=== PATIENT | female | born 1980 | race Caucasian/White ===

== ENCOUNTER 2017-07-17 07:38 | Inpatient (IN) | payer OTHER ==
[2017-07-17] VITALS (19 sets, daily range): BP systolic 112–158; BP diastolic 62–84; PULSE 56–87; RESP 16–28; Ht 160 cm; Wt 79.0 kg
[~2017-07-17] VITALS: Ht 160 cm; Wt 79.0 kg
[2017-07-17] MEDS ORDERED: HYDR200T5 PO (08:31)
[2017-07-17] MEDS ORDERED: PRED5 PO (08:31)
--- NOTE | 2017-07-17 08:37 | HP ---
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 denies any sexually transmitted infection sexually active with one partner Social history denies any smoking drugs or alcohol Family history none Review of systems all within normal except history of present illness HEENT within normal Lungs CTA bilateral CVS positive S1-S2 regular rhythm Abdomen mild lower abdominal tenderness no mass no distention Extremity negative edema no calf tenderness Vaginal exam normal external genitalia cervix negative CMT negative lesions adnexa negative mass nontender bilateral fundus within normal limits Ultrasound performed on February 03, 2007 complex 5.1 cm left adnexal cystic mass possibly dermoid versus hemorrhagic cyst Assessment to parity desires permanent surgical sterilization, suspected left adnexal dermoid cyst Plan consent for laparoscopic bilateral tubal sterilization with left or right ovarian cystectomy possible exploratory laparotomy possible oophorectomy LEONARDO BANG MD Jul 17, 2017 08:37
[2017-07-17 08:53] LABS: BASOPHIL # 0.1 10^3/ul (0.0-0.1); BASOPHILS % 0.8 % (0.0-2.0); EOSINOPHILS # 0.3 10^3/ul (0.0-0.5); EOSINOPHILS % 4.1 % (0.0-7.0); HEMATOCRIT 43.1 % (37.0-47.0); HEMOGLOBIN 14.5 g/dl (12.0-16.0); LYMPHOCYTES # 2.6 10^3/ul (0.8-2.9); LYMPHOCYTES % 41.4 % (15.0-51.0); MEAN CORPUSCULAR HEMOGLOBIN 30.5 pg (29.0-33.0); MEAN CORPUSCULAR HGB CONC 33.6 g/dl (32.0-37.0); MEAN CORPUSCULAR VOLUME 90.7 fl (82.0-101.0); MEAN PLATELET VOLUME 9.7 fl (7.4-10.4); MONOCYTE # 0.4 10^3/ul (0.3-0.9); MONOCYTES % 6.5 % (0.0-11.0); NEUTROPHILS % 46.9 % (39.0-77.0); PLATELET COUNT 268 10^3/UL (140-415); RED BLOOD COUNT 4.75 10^6/ul (4.20-5.40); RED CELL DISTRIBUTION WIDTH 12.7 % (11.5-14.5); WHITE BLOOD COUNT 6.4 10^3/ul (4.8-10.8)
[2017-07-17] MEDS ORDERED: MIDAZOLAM 1 MG/ML 2 ML INJ ONE (08:59)
[2017-07-17] MEDS ORDERED: LIDOCAINE 2% (SDV) 5 ML INJ ONE (08:59)
[2017-07-17] MEDS ORDERED: PROPOFOL 20 ML ONE (08:59)
[2017-07-17] MEDS ORDERED: SUCCINYLCHOLINE CHLORIDE 100 MG/5 ML SYG IV ONE (08:59)
[2017-07-17] MEDS ORDERED: FENTAnyl 50 MCG/ML VIAL ONE (08:59)
[2017-07-17] MEDS ORDERED: DIPHENHYDRAMINE 50 MG INJ IV PRN ×2 (09:00→12:00)
[2017-07-17] MEDS ORDERED: ONDANSETRON 4 MG INJ IV PRN ×2 (09:00→12:00)
[2017-07-17] MEDS ORDERED: OXYCODONE/ACETAMINOPHEN (5/325) TAB PO PRN ×4 (09:00→12:00)
[2017-07-17] MEDS ORDERED: HYDROmorphONE (0.2 MG/ML) 10ML SYG IV PRN ×2 (09:00)
[2017-07-17] MEDS ORDERED: PROCHLORPERAZINE 10 MG INJ IV PRN (09:00)
[2017-07-17] MEDS ORDERED: MEPERIDINE 25 MG INJ IV PRN (09:00)
[2017-07-17] MEDS ORDERED: CEFAZOLIN 1 GM INJ ONE (09:21)
[2017-07-17] MEDS ORDERED: ROCURONIUM 50 MG INJ ONE (09:21)
[2017-07-17] MEDS ORDERED: METOCLOPRAMIDE 10 MG INJ ONE (09:26)
[2017-07-17] MEDS ORDERED: ONDANSETRON 4 MG INJ ONE (09:26)
[2017-07-17] MEDS ORDERED: DEXAMETHASONE 4 MG/ML 1 ML INJ ONE (09:26)
[2017-07-17] MEDS ORDERED: HYDROmorphONE 2 MG/ML SYG ONE (09:52)
[2017-07-17] MEDS ORDERED: GLYCOPYRROLATE 0.4 MG INJ ONE (10:28)
[2017-07-17] MEDS ORDERED: NEOSTIGMINE 3 MG/3 ML SYRINGE ONE (10:28)
--- NOTE | 2017-07-17 11:18 | SIPON ---
Date/Time of Note Date/Time of Note DATE: 07/17/17 TIME: 11:14 Operative Report Preoperative Diagnosis Multiparity desires permanent surgical sterilization, suspected left adnexal dermoid cyst Postoperative Diagnosis Multiparity desires permanent surgical sterilization Left ovarian dermoid cyst benign/frozen section Operation/Procedure Performed Diagnostic laparoscopy Left ovarian cystectomy Bilateral tubal ligation [place] method Surgeon: LEONARDO BANG MD Co-Surgeon: SOL VALLE MD Anesthesia Type: general Transfusion Required: no Specimens Left ovarian cyst Portion of the right and left fallopian tubes Grafts/Implants: none Complications: no LEONARDO BANG MD Jul 17, 2017 11:18
[2017-07-17] MEDS: FENTAnyl 50 MCG/ML VIAL IV PRN ×3 (11:22→11:50)
[2017-07-17] MEDS ORDERED: HYDROmorphONE 0.2 MG/ML PCA ONE (11:46)
[2017-07-17] MEDS ORDERED: NALOXONE (0.4 MG/ML) INJ IV PRN (12:00)
[2017-07-17] MEDS ORDERED: HYDROmorphONE 0.2 MG/ML PCA IV SCH (12:00)
[2017-07-17] MEDS ORDERED: TRIMETHOBENZAMIDE 100 MG/ML VIAL IM PRN (12:00)
[2017-07-17] MEDS ORDERED: HYDROmorphONE 1 MG/ML SYG IV PRN ×2 (12:00)
[2017-07-17] MEDS ORDERED: CEFAZOLIN 2 GM/50 ML (PMX) 50 ML IVPB SCH (14:00)
[2017-07-17] MEDS: IBUPROFEN 600 MG TAB PO PRN (21:11)
[2017-07-17] MEDS: CEFAZOLIN 2 GM/50 ML (PMX) 50 ML IVPB SCH (22:24)
[2017-07-18 01:51] VITALS: BP 106/65; RESP 20
[2017-07-18 02:00] VITALS: BP 115/63; PULSE 82; RESP 18
[2017-07-18 04:00] VITALS: BP 124/71; PULSE 81; RESP 18
[2017-07-18] MEDS: CEFAZOLIN 2 GM/50 ML (PMX) 50 ML IVPB SCH ×2 (05:18→14:04)
[2017-07-18 05:53] LABS: BASOPHILS % 0.3 % (0.0-2.0); EOSINOPHILS % 0.1 % (0.0-7.0); HEMATOCRIT 39.1 % (37.0-47.0); HEMOGLOBIN 12.9 g/dl (12.0-16.0); LYMPHOCYTES # 1.9 10^3/ul (0.8-2.9); LYMPHOCYTES % 22.1 % (15.0-51.0); MEAN CORPUSCULAR HEMOGLOBIN 29.9 pg (29.0-33.0); MEAN CORPUSCULAR VOLUME 90.5 fl (82.0-101.0); MONOCYTE # 0.6 10^3/ul (0.3-0.9); MONOCYTES % 7.4 % (0.0-11.0); NEUTROPHILS % 69.8 % (39.0-77.0); PLATELET COUNT 254 10^3/UL (140-415); RED BLOOD COUNT 4.32 10^6/ul (4.20-5.40); RED CELL DISTRIBUTION WIDTH 12.8 % (11.5-14.5); WHITE BLOOD COUNT 8.6 10^3/ul (4.8-10.8)
[2017-07-18 07:42] VITALS: BP 111/66; RESP 20
[2017-07-18] MEDS: IBUPROFEN 600 MG TAB PO PRN (10:55)
--- NOTE | 2017-07-18 11:28 | OPR ---
DATE OF OPERATION: 07/17/2017 PREOPERATIVE DIAGNOSIS: 1. Multiparity, desires permanent surgical sterilization, with suspected left adnexal dermoid cyst. POSTOPERATIVE DIAGNOSES: 1. Multiparity, desires permanent surgical sterilization. 2. Left ovarian dermoid cyst, benign by frozen section. OPERATION PERFORMED: 1. Diagnostic laparoscopy. 2. Exploratory laparotomy. 3. Left ovarian cystectomy with bilateral tubal ligation, [place] method. SURGEON: Dr. Cai. ASSISTANTS: Dr. Bro. ANESTHESIA: General. ESTIMATED BLOOD LOSS: 30 mL. OPERATIVE FINDINGS AT SURGERY: A 5 cm left ovarian solid/cystic ovarian cyst with normal tubes bilateral. Normal uterus. OPERATIVE PROCEDURE: The patient was taken to the operating room, where general anesthesia was obtained without difficulty. The patient was then examined under anesthesia and found to have a small anteverted uterus with normal adnexa. She was then placed in a dorsal lithotomy position. Prepared and draped in a sterile fashion. A heavy weighted speculum was then placed in the patient's vagina and anterior lip of the cervix was grasped with a single-tooth tenaculum. A [employer] uterine manipulator was then advanced into the uterine to provide means to manipulate the uterus. The speculum was then removed from the vagina. Attention was then turned to the patient's abdomen where a 5 mm skin incision was made in the umbilical fold. The Veress needle was carefully introduced into the peritoneal cavity at a 45 degrees angle while tenting the abdominal wall. Intraoperative intraperitoneal placement was confirmed by use of water-filled syringe, and a drop in intra-abdominal pressure with insufflation of CO2 gas. The trocar and sleeve were then advanced without difficulty into the abdomen and intra-abdominal placement was confirmed by laparoscope. Pneumoperitoneum was obtained with 4 L of CO2 gas. A 5 mm trocar and sleeve was confirmed by laparoscope. A survey of the patient's pelvis and abdomen revealed as noted above. At that point, it was decided to do an exploratory lap where the trocar was removed and a Pfannenstiel incision was made approximately 2 cm above the symphysis pubis and extended sharply to the rectus fascia. The fascia was then incised bilaterally with curved [place] scissors and the muscles of the anterior abdominal wall were in midline by sharp and blunt dissection. The peritoneum was grasped between 2 pickups, elevated, and entered sharply with the scalpel. At this point, a 2 cm incision was made at a superficial layer of the ovary and the ovarian cyst was meticulously shelled out by sharp and dull dissection, and sent to pathology intact, which was known to be a benign dermoid. The raw edges of the ovary was reapproximated in a running fashion with #3-0 Monocryl. Good hemostasis was noted. At this point, the patient's left fallopian tube was identified and grasped with [place] clamp. The tube was then followed out to the fimbriae, the Mildred clamp was then used to grasp the tube approximately 4 cm from the cornual region. A 3 cm segment of the tube was then ligated and a free tie of plain gut and excised. Good hemostasis was noted. Similarly, the right fallopian tube was ligated and a 3 cm segment excised in similar fashion. Excellent hemostasis was noted and at this point, copious irrigation was performed. There was no bleeding from the incision site. All laparotomy sponges were correct. Rectus abdominal muscles reapproximated with #2-0 plain gut in a interrupted fashion. The fascia was opened was closed with running #0 Vicryl. Good hemostasis was assured. The skin was closed with absorbable haroldo. Again sponge, lap, and needle counts were correct. The patient was taken to PACU in stable condition. Dictated By: Remi Cai MD /bowen/sherita /Document#: [id number]
[2017-07-18 13:03] VITALS: BP 112/67; RESP 18
[2017-07-18] MEDS ORDERED: OXYCODONE/ACETAMINOPHEN (5/325) TAB PO PRN (16:00)
--- NOTE | 2017-07-18 18:43 | QN ---
Documentation Comment pod 1 patient seen and evaluated aaoX 3 no complaints tolerating diet, ambulation, flatus abd c/d/i no distention extremity no edema no calf tenderness a/ s/p blt, left ovarian cystectomy pod 1 p/ continue present management LEONARDO BANG MD Jul 18, 2017 18:43
[2017-07-18 19:28] VITALS: BP 98/57; RESP 20
[2017-07-19 01:50] VITALS: BP 94/57; RESP 20
[2017-07-19] MEDS: OXYCODONE/ACETAMINOPHEN (5/325) TAB PO PRN ×2 (05:45→19:52)
[2017-07-19 09:00] VITALS: BP 108/66; RESP 20
[2017-07-19 15:10] VITALS: BP 115/78; RESP 20
[2017-07-19] MEDS ORDERED: BISACODYL 10 MG SUPP PR ONE (16:00)
--- NOTE | 2017-07-19 19:36 | QN ---
Documentation Comment Progress note postop day 2 Patient seen and evaluated awake alert oriented 3 Positive ambulation positive voiding tolerating diet Vital signs stable afebrile Abdomen soft nontender clean dry and intact Extremity negative edema no calf tenderness Assessment status post diagnostic laparoscopy exploratory laparotomy left ovarian cystectomy with bilateral tubal ligation Plan discharge home tomorrow after bowel movement Follow-up in the office in 2 weeks Prescription for Percocet and Motrin given to patient LEONARDO BANG MD Jul 19, 2017 19:36
--- NOTE | 2017-07-19 19:39 | PD.PPDC ---
CONTROL ROOM AGENT Discharge Instruction Condition Patient Condition: Fair Activity/Restrictions Activity: Normal Activity May Shower Wound/Drain Care Instructions Wound/Drain Care Instructions: Wash with soap and water Keep clean and dry Follow-up Follow-up with Physician: 2, Week/Weeks Return to clinic for PLASTIC MIXER Instructions: Fever greater than 101 Chills Worsening abdominal pain Excessive Vaginal Bleeding More than 2 pads per hour Unable to tolerate diet OB Instructions: Breast Tenderness Depression Blurried Vision Headache Surgical Instructions: Incisional Drainage Incisional Redness LEONARDO BANG MD Jul 19, 2017 19:39
[2017-07-19 20:00] VITALS: BP 129/79; RESP 20
[2017-07-20 01:07] VITALS: BP 99/63; RESP 20
--- NOTE | 2017-07-20 05:50 | DS ---
DATE OF ADMISSION: 07/17/2017 DATE OF DISCHARGE: PRIMARY DIAGNOSES: 1. Multiparity. Desires permanent surgical sterilization. 2. Left ovarian dermoid cyst, benign. PROCEDURE: Diagnostic laparoscopy, exploratory laparotomy, left ovarian cystectomy with bilateral tubal ligation, [place] method. DISCHARGE CONDITION: Stable. ACTIVITY: None per vaginal. No heavy lifting x6 weeks. DIET: Regular. DISCHARGE MEDICATIONS: 1. Motrin. 2. Percocet. DISCHARGE SUMMARY: Mrs. Ami Corral is a 37-year-old female, status post diagnostic laparoscopy, exploratory laparotomy with left ovarian cystectomy, with bilateral tubal ligation on 07/17/2017. She had uneventful postop day 1 and 2. Her incision is clean, dry, intact. She is ambulating, tolerating diet, positive flatulence. She will be discharged home tomorrow after bowel movement. She will follow up in the office in two weeks. Dictated By: Remi Cai MD /bowen/arin /Document#: [id number]
[2017-07-20] MEDS: OXYCODONE/ACETAMINOPHEN (5/325) TAB PO PRN (08:50)
[2017-07-20] MEDS ORDERED: BISACODYL 10 MG SUPP PR ONE (09:00)
== END 2017-07-20 14:00 | disposition home or self-care (01) | DRG 743 ==
LOC: SDS 07:38 → MS2 11:18
PROVIDERS: ADMIT Obstetrics & Gynecology; ATTEND Obstetrics & Gynecology
PROC: 0UB70ZZ Excision of Bilateral Fallopian Tubes, Open Approach (ICD-10-PCS; 2017-07-17)
PROC: 0UB10ZZ Excision of Left Ovary, Open Approach (ICD-10-PCS; principal; 2017-07-17 09:00)
PROC: 0WJJ4ZZ Inspection of Pelvic Cavity, Percutaneous Endoscopic Approach (ICD-10-PCS; 2017-07-17 09:00)
DX: D27.1 Benign neoplasm of left ovary (principal); Z30.2 Encounter for sterilization
CPT/HCPCS: 85025; 86850; 86900; 86901; 87086; 88302; 88307; J0690; J1100; J1170; J2250; J2405; J2710; J2765; J3010; J7999